=== PATIENT | female | born 1970 | race Caucasian/White ===

== ENCOUNTER 2019-10-11 10:23 | Outpatient (CLI) | payer MEDICAID ==
[~2019-10-11 10:23] MED LIST: BENZ-16 PO; GUAI10SY2 PO; IBUP-1984 PO; NO HOME MEDS; ONDA4TAB12 PO; ONDA4TAB59 PO; PHEN-716 PO
== END 2019-10-11 23:59 | disposition home or self-care (01) ==
LOC: MERGE 10:23 → RAD 10:23
PROVIDERS: ATTEND Psychiatry & Neurology Neurology
DX: R41.89 Other symptoms and signs involving cognitive functions and awareness (principal)
CPT/HCPCS: 95816

== ENCOUNTER 2021-09-06 12:51 | Emergency (ER) | payer MEDICAID ==
[~2021-09-06] VITALS: Ht 180.3 cm; Wt 109.1 kg
--- NOTE | 2021-09-06 13:24 | NUR ---
Pilo yan in [facility] - 09/06/21 at 1325 by GRAZYNA PAGED US NOW THAT PT IS READY WITH A FULL BLADDER
--- NOTE | 2021-09-06 13:26 | NUR ---
PT TO XRAY
--- NOTE | 2021-09-06 13:34 | NUR ---
PT BACK FROM XRAY
[2021-09-06] MEDS ORDERED: ibuprofen tablet 400 MG TABLET PO ONE (13:45)
[2021-09-06 13:58] VITALS: BP 122/85
== END 2021-09-06 14:00 | disposition home or self-care (01) ==
LOC: ER 12:51
DX: S80.212A Abrasion, left knee, initial encounter (principal); G43.909 Migraine, unspecified, not intractable, without status migrainosus; F31.9 Bipolar disorder, unspecified; Z88.0 Allergy status to penicillin; Z79.899 Other long term (current) drug therapy; X58.XXXA Exposure to other specified factors, initial encounter; Y93.89 Activity, other specified; Y92.89 Other specified places as the place of occurrence of the external cause; Y99.8 Other external cause status
CPT/HCPCS: 73564; 73630; 99284

== ENCOUNTER 2021-09-18 14:52 | Emergency (ER) | payer MEDICAID ==
[~2021-09-18] VITALS: Ht 180.3 cm; Wt 110.2 kg
[2021-09-18 15:31] VITALS: BP 163/90
[2021-09-18] MEDS ORDERED: SULF1TAB49 PO (17:34)
[2021-09-18] MEDS ORDERED: bacitracin 15gm ointment TP ONE (17:35)
[2021-09-19] MEDS ORDERED: SULF1TAB49 PO (16:23)
== END 2021-09-18 18:21 | disposition home or self-care (01) ==
LOC: ER 14:53
DX: L03.116 Cellulitis of left lower limb (principal); L03.115 Cellulitis of right lower limb; R10.32 Left lower quadrant pain; G43.909 Migraine, unspecified, not intractable, without status migrainosus; Z86.19 Personal history of other infectious and parasitic diseases; Z87.440 Personal history of urinary (tract) infections; Z98.891 History of uterine scar from previous surgery; Z88.5 Allergy status to narcotic agent; Z79.899 Other long term (current) drug therapy; Z72.89 Other problems related to lifestyle
CPT/HCPCS: 99283

== ENCOUNTER 2021-09-19 15:29 | Emergency (ER) | payer MEDICAID ==
[~2021-09-19] VITALS: Ht 180.3 cm; Wt 111.0 kg
[~2021-09-19 15:29] MED LIST changes: +SULF1TAB49 PO
[2021-09-19 15:40] VITALS: BP 138/73
[2021-09-19] MEDS ORDERED: SULF1TAB49 PO (16:23)
== END 2021-09-19 16:40 | disposition home or self-care (01) ==
LOC: ER 15:30
DX: L03.119 Cellulitis of unspecified part of limb (principal); Z76.0 Encounter for issue of repeat prescription; G43.909 Migraine, unspecified, not intractable, without status migrainosus; F31.9 Bipolar disorder, unspecified; Z87.448 Personal history of other diseases of urinary system; Z88.5 Allergy status to narcotic agent; Z79.899 Other long term (current) drug therapy
CPT/HCPCS: 99281; 99283

== ENCOUNTER 2021-11-11 12:27 | Emergency (ER) | payer MEDICAID ==
[~2021-11-11] VITALS: Ht 180.3 cm; Wt 90.9 kg
[~2021-11-11 12:27] MED LIST changes: -SULF1TAB49 PO
[2021-11-11 13:55] VITALS: BP 177/139
[2021-11-11] MEDS ORDERED: ibuprofen 200mg tablet PO ONE (16:00)
== END 2021-11-11 16:49 | disposition home or self-care (01) ==
LOC: ER 12:27
DX: M54.41 Lumbago with sciatica, right side (principal); G43.909 Migraine, unspecified, not intractable, without status migrainosus; F41.9 Anxiety disorder, unspecified; F32.9 Major depressive disorder, single episode, unspecified; Z86.19 Personal history of other infectious and parasitic diseases; Z88.5 Allergy status to narcotic agent; Z79.899 Other long term (current) drug therapy
CPT/HCPCS: 99282

== ENCOUNTER 2021-12-06 19:49 | Emergency (ER) | payer MEDICAID ==
[~2021-12-06] VITALS: Ht 180.3 cm; Wt 105.0 kg
[2021-12-07] MEDS ORDERED: ketorolac trometh. 30mg/ml inj. IM ONE (00:35)
[2021-12-07 02:29] LABS: BASOPHILS # (AUTO) 0.1 X10'3 (0-0.2); BASOPHILS % (AUTO) 1.2 % (0-1); EOSINOPHILS # (AUTO) 0.4 X10'3 (0-0.9); EOSINOPHILS % (AUTO) 6.4 % (0-6); HEMATOCRIT 40.5 % (35.0-45.0); HEMOGLOBIN 13.5 g/dl (12.0-16.0); LYMPHOCYTES # (AUTO) 2.3 X10'3 (1.1-4.8); LYMPHOCYTES % (AUTO) 36.5 % (21-51); MEAN CORPUSCULAR HEMOGLOBIN 28.3 PG (27.0-31.0); MEAN CORPUSCULAR HGB CONC 33.3 g/dL (33.0-36.5); MEAN CORPUSCULAR VOLUME 84.9 FL (78-98); MEAN PLATELET VOLUME 7.1 FL (7.4-10.4); MONOCYTES # (AUTO) 0.7 X10'3 (0-0.9); MONOCYTES % (AUTO) 10.6 % (2-12); NEUTROPHILS # (AUTO) 2.9 X10'3 (1.8-7.7); NEUTROPHILS % (AUTO) 45.3 % (42-75); PLATELET COUNT 267 X10'3 (140-440); RED BLOOD COUNT 4.77 X10'6 (4.20-5.60); RED CELL DISTRIBUTION WIDTH 14.2 % (11.5-14.5); WHITE BLOOD COUNT 6.3 X10'3 (4.5-11.0)
[2021-12-07 02:39] LABS: ALANINE AMINOTRANSFERASE 78 U/L (12-78); ALBUMIN 3.3 G/DL (3.4-5.0); ALBUMIN/GLOBULIN RATIO 0.8 (1.1-1.5); ALKALINE PHOSPHATASE 118 IU/L (46-116); ANION GAP 7 (8-16); ASPARTATE AMINO TRANSFERASE 36 U/L (10-37); BILIRUBIN,TOTAL 0.3 MG/DL (0.1-1.0); BLOOD UREA NITROGEN 21 MG/DL (7-18); BUN/CREATININE RATIO 20.4 (6.6-38.0); C-REACTIVE PROTEIN 0.28 MG/DL (0.0-0.5); CALCIUM 8.5 MG/DL (8.5-10.1); CHLORIDE 104 MMOL/L (99-107); CREATININE 1.03 MG/DL (0.40-0.90); ETHANOL < 0.010 GM/DL (0.0-0.010); GLUCOSE 94 MG/DL (70-104); SODIUM 141 MMOL/L (135-145); TOTAL CARBON DIOXIDE 29.6 MMOL/L (24-32); TOTAL PROTEIN 7.3 G/DL (6.4-8.2); eGFR 56 ML/MIN
[2021-12-07] MEDS ORDERED: normal saline 1000ml 1,000 ML IV ONE (03:15)
[2021-12-07] MEDS ORDERED: POTASSIUM BICARB 20meq eff tab 20 MEQ TABLET.EFF PO SCH (03:15)
[2021-12-07 06:00] LABS: COLOR,URINE YELLOW (Yellow); GLUCOSE, URINE NEGATIVE (Neg); KETONES,URINE NEGATIVE (Neg); LEUKOCYTE ESTERASE ,URINE SMALL (Neg); NITRITES, URINE NEGATIVE (Neg); OCCULT BLOOD,URINE NEGATIVE (Neg); PH,URINE 6.5 (4.8-8.0); PROTEIN,URINE NEGATIVE (Neg); UROBILINOGEN,URINE 0.2 E.U/dL (0.2-1.0)
[2021-12-07 06:06] LABS: UA COLLECTION TYPE CLN CATCH MIDSTREAM
[2021-12-07 06:07] LABS: CLARITY,URINE SLIGHTLY CLOUDY (Clear); URINE AMPHETAMINE SCREEN POSITIVE (Neg); URINE BARBITUATE SCREEN NEGATIVE (Neg); URINE BENZODIAZEPINES SCREEN NEGATIVE (Neg); URINE CANNABINOID SCREEN NEGATIVE (Neg); URINE COCAINE SCREEN NEGATIVE (Neg); URINE METHADONE SCREEN NEGATIVE (Neg); URINE OPIATE SCREEN NEGATIVE (Neg); URINE PHENCYCLIDINE SCREEN NEGATIVE (Neg)
[2021-12-07 06:08] LABS: BACTERIA,URINE FEW /HPF (Neg); RBC,URINE 0-2 /HPF (0-2); SQUAMOUS EPITHELIAL CELL,UR FEW /LPF (FEW)
[2021-12-07] MEDS ORDERED: LORazepam 2 mg/ml vial IV ONE (10:15)
--- NOTE | 2021-12-07 10:45 | NUR ---
PT WAS NOT ABLE TO GET MRI TEST ,VERY CONFUSED,NOTIFIED DR RDZ .
--- NOTE | 2021-12-07 11:32 | NUR ---
PT TO MRI AT THIS TIME.
--- NOTE | 2021-12-07 12:40 | NUR ---
TO MRI AGAIN.
--- NOTE | 2021-12-07 16:36 | NUR ---
PT IS VERY EMOTIONAL AND CRYING DOES NOT WANT TO GET TRANSFER OUT OF [facility] TO GET HIGHER LEVEL OF CARE .NOTIFIED DR ESPINO ABOUT PT CONDITION.
--- NOTE | 2021-12-07 16:38 | NUR ---
DR ESPINO AT BEDSIDE.
--- NOTE | 2021-12-07 17:48 | NUR ---
FIANCE AT BEDSIDE .
[2021-12-07 21:17] VITALS: BP 161/99
== END 2021-12-07 21:40 | disposition short-term general hospital (02) ==
LOC: ER 19:50
DX: G95.20 Unspecified cord compression (principal); G43.909 Migraine, unspecified, not intractable, without status migrainosus; Z88.5 Allergy status to narcotic agent
CPT/HCPCS: 36415; 70450; 70551; 72131; 72158; 80053; 80305; 80320; 81001; 83605; 84145; 85025; 85651; 86140; 87040; 96361; 96372; 96374; 99285; J1885; J2060; J7030

== ENCOUNTER 2021-12-27 14:09 | Emergency (ER) | payer MEDICAID ==
[~2021-12-27] VITALS: Ht 180.3 cm; Wt 79.5 kg
[2021-12-27 14:14] VITALS: BP 166/95
== END 2021-12-27 17:52 | disposition left against medical advice (07) ==
LOC: ER 14:10
DX: M54.9 Dorsalgia, unspecified (principal); Z53.21 Procedure and treatment not carried out due to patient leaving prior to being seen by health care provider
CPT/HCPCS: 93005

== ENCOUNTER 2022-01-18 11:34 | Emergency (ER) | payer MEDICAID ==
[~2022-01-18] VITALS: Ht 180.3 cm; Wt 98.0 kg
[2022-01-18 11:52] VITALS: BP 125/94
[2022-01-18] MEDS ORDERED: ketorolac trometh. 30mg/ml inj. IM ONE (12:40)
[2022-01-18] MEDS ORDERED: oxyCODONE IR 5mg (immed. release) tablet PO ONE (12:40)
[2022-01-18] MEDS ORDERED: LORazepam 1 MG tablet PO ONE (12:50)
== END 2022-01-18 13:03 | disposition home or self-care (01) ==
LOC: ER 11:34
DX: M54.50 Low back pain, unspecified (principal); G89.29 Other chronic pain; G43.909 Migraine, unspecified, not intractable, without status migrainosus; Z88.5 Allergy status to narcotic agent
CPT/HCPCS: 96372; 99283; J1885

== ENCOUNTER 2022-08-14 19:46 | Emergency (ER) | payer MEDICAID ==
[~2022-08-14] VITALS: Ht 180.3 cm; Wt 75.0 kg
[2022-08-14 20:08] VITALS: BP 124/68
--- NOTE | 2022-08-14 20:51 | NUR ---
pt refuses to be seen.
== END 2022-08-14 21:00 | disposition left against medical advice (07) ==
LOC: ER 19:47
DX: F10.129 Alcohol abuse with intoxication, unspecified (principal); Z53.21 Procedure and treatment not carried out due to patient leaving prior to being seen by health care provider; Y90.9 Presence of alcohol in blood, level not specified
CPT/HCPCS: 99281

== ENCOUNTER 2023-01-28 10:16 | Emergency (ER) | payer MEDICAID ==
[~2023-01-28] VITALS: Ht 180.3 cm; Wt 75.0 kg
[2023-01-28 10:24] VITALS: BP 118/75; PULSE 79; RESP 18; O2SAT 100
[2023-01-28] MEDS ORDERED: SULF1TAB49 PO (11:42)
[2023-01-28] MEDS ORDERED: CEPH-585 PO (11:42)
[2023-01-28] MEDS ORDERED: MUPI22OI30 TOP (11:42)
== END 2023-01-28 12:20 | disposition home or self-care (01) ==
LOC: ER 10:17
DX: L73.9 Follicular disorder, unspecified (principal); G43.909 Migraine, unspecified, not intractable, without status migrainosus; G89.29 Other chronic pain; Z87.440 Personal history of urinary (tract) infections; Z86.19 Personal history of other infectious and parasitic diseases; Z88.5 Allergy status to narcotic agent; Z79.899 Other long term (current) drug therapy
CPT/HCPCS: 99283

== ENCOUNTER 2023-02-09 20:58 | Emergency (ER) | payer MEDICAID ==
[~2023-02-09] VITALS: Ht 180.3 cm; Wt 90.8 kg
[~2023-02-09 20:58] MED LIST changes: +CEPH-585 PO
[2023-02-09 21:14] VITALS: BP 158/93; PULSE 100; RESP 14; TEMP 98.9; O2SAT 97
[2023-02-10] MEDS ORDERED: DOXY100C43 PO (00:04)
== END 2023-02-10 00:22 | disposition home or self-care (01) ==
LOC: ER 20:59
DX: L73.9 Follicular disorder, unspecified (principal); G43.909 Migraine, unspecified, not intractable, without status migrainosus; Z88.5 Allergy status to narcotic agent; Z79.2 Long term (current) use of antibiotics; Z79.1 Long term (current) use of non-steroidal anti-inflammatories (NSAID); Z79.899 Other long term (current) drug therapy; Z98.890 Other specified postprocedural states
CPT/HCPCS: 99283

== ENCOUNTER 2023-12-10 14:38 | Emergency (ER) | payer MEDICAID ==
[~2023-12-10] VITALS: Ht 177.8 cm; Wt 106.1 kg
[~2023-12-10 14:38] MED LIST changes: +ONDA-243 PO; -ONDA4TAB12 PO
[2023-12-10] MEDS: ibuprofen 200mg tablet PO ONE (16:17)
[2023-12-10] MEDS: LIDOcaine 1% 30ml preserv. free vial SQ STA (17:19)
[2023-12-10] MEDS ORDERED: DOXYCYCLINE 100MG CAPSULE PO STA (17:22)
[2023-12-10] MEDS ORDERED: ciprofloxacin 250mg tablet PO ONE (17:25)
[2023-12-10] MEDS ORDERED: CIPR-20 PO (17:32)
[2023-12-10] MEDS ORDERED: DOXY-460 PO (17:32)
[2023-12-10] MEDS ORDERED: IBUP-1985 PO (17:32)
[2023-12-10 17:41] VITALS: BP 120/72; PULSE 92; RESP 18; TEMP 98.2; O2SAT 93
== END 2023-12-10 17:43 | disposition home or self-care (01) ==
LOC: ER 14:38
DX: L02.612 Cutaneous abscess of left foot (principal); M79.89 Other specified soft tissue disorders; G43.909 Migraine, unspecified, not intractable, without status migrainosus; G89.29 Other chronic pain; M54.9 Dorsalgia, unspecified; F41.9 Anxiety disorder, unspecified; F32.A Depression, unspecified; Z98.890 Other specified postprocedural states; Z88.8 Allergy status to other drugs, medicaments and biological substances; Z79.2 Long term (current) use of antibiotics; Z79.1 Long term (current) use of non-steroidal anti-inflammatories (NSAID); Z79.899 Other long term (current) drug therapy
CPT/HCPCS: 10060; 73630; 99283

== ENCOUNTER 2024-11-15 09:14 | Inpatient (IN) | payer MEDICAID ==
[~2024-11-15] VITALS: Ht 180.3 cm; Wt 98.2 kg
[~2024-11-15 09:14] MED LIST changes: -CEPH-585 PO; +IBUP-1985 PO
--- NOTE | 2024-11-15 10:08 | Physician Documentation ---
History of Present Illness ~ Chief Complaint: Abscess Stated Complaint: ANKLE INFECTION Time Seen by MD: 09:48 Primary Medical Doctor: NANCY Olivarez [facility] HPI 53-year-old female presents today will with three days of left lower extremity pain and swelling. denies Any fevers, however she thinks she may have developed an abscess on the left side of her leg while moving homes. Reports the pain starts in her lower extremity and travels all the way up to her left inguinal area Day of Onset: Nov 15, 2024 Tetanus Within 5 Years: No Medication Reconciliation Allergies: Coded Allergies: morphine (Verified Allergy, Mild, RASH, 01/28/23) Scheduled Amlodipine* (Norvasc*), 10 MG PO DAILY, (Reported) Bupropion XL (Bupropion Xl), 1 TAB PO QAM, (Reported) Hydrochlorothiazide (Hydrochlorothiazide), 1 TAB PO DAILY, (Reported) Valsartan* (Diovan*), 1 TAB PO DAILY, (Reported) Discontinued Medications Benzonatate* (Tessalon Perles*), 1 CAP PO Q8H PRN for cough Discontinued Reason: patient no longer taking Guaifenesin/Codeine Phos* (Robitussin Ac Syrup*), 10 ML PO Q6H PRN FOR COUGH Discontinued Reason: patient no longer taking Home Med List (No Home Medications), (Reported) Discontinued Reason: patient no longer taking Ibuprofen (Ibuprofen), 1 TAB PO Q8H Discontinued Reason: patient no longer taking Ibuprofen* (Motrin*), 1-2 TAB PO Q8H Discontinued Reason: patient no longer taking ONDANSETRON ODT 4mg tablet (Ondansetron Odt), 1 TABLET PO Q6H PRN for pain Discontinued Reason: patient no longer taking Ondansetron Hcl (Ondansetron Hcl), 4 MG PO Q6H PRN for NAUSEA Discontinued Reason: patient no longer taking Phenazopyridine HCl (Pyridium), 1 TAB PO Q8H Discontinued Reason: patient no longer taking Past Medical History Past Medical History: Headache, Migraine, Hepatitis C, Hernia, UTI, Chronic Back Pain, Anxiety, Depression Past Surgical History: abdominal surgery, Other Past Family History: NONE Alcohol Use: None Drug Use: other Lives with: Family Lives In: Home Occupation: employed, student Review of Systems All Other Systems at this time: Reviewed and Negative ROS As stated above in the HPI, otherwise all systems are reviewed and negative. Physical Exam Vital Signs: Temperature: 97.6, Source: Temporal, Heart Rate: 91, Respiratory Rate: 12, BP: 120/86, Pulse Oximetry: 97, Weight: 98.200 Physical Exam General: Alert, no apparent distress. Respiratory: Lungs clear, no respiratory distress. Extremities: Normal range of motion, no deformity. + Homans sign LLE, circumferential swelling on lower extremity with developing infection in the lateral aspect and purplish discoloration in the medial aspect. Lymphangitis Neurologic: Oriented x4. Psychiatric: Normal mood and affect. Skin: Normal color, warm and dry. No edema, no ecchymosis. Progress Results/Orders Results/Orders Orders - MOIZ MASSEY ACCIDENT INVESTIGATOR Culture Blood (11/15/24 10:00) Urinalysis, Cult If Indicated (11/15/24 10:00) Monitor (11/15/24 10:00) Saline Lock (11/15/24 10:00) Vl Venous (11/15/24 10:00) Page Hospitalist (11/15/24 ) Non Formulary (11/17/24 04:30) Vancomycin,Trough (11/17/24 04:30) CMP (11/16/24 03:00) CMP (11/17/24 03:00) CMP (11/18/24 03:00) CMP (11/19/24 03:00) CMP (11/20/24 03:00) Cbc/Diff (11/16/24 03:00) Cbc/Diff (11/17/24 03:00) Cbc/Diff (11/18/24 03:00) Cbc/Diff (11/19/24 03:00) Cbc/Diff (11/20/24 03:00) Completed Orders - MOIZ MASSEY ACCIDENT INVESTIGATOR Cbc/Diff (11/15/24 10:00) Procalcitonin (11/15/24 10:00) BMP (11/15/24 10:00) Lacticsepsis (11/15/24 10:00) Vl Venous (11/15/24 10:00) Piperacillin/Tazo 4.5gm/100ml (Zosyn 4.5 (11/15/24 11:45) Vancomycin*Pharmacy To Dose* (Vancomycin (11/15/24 11:45) Normal Saline 1000ml (Sodium Chloride 10 (11/15/24 11:50) Vancomycin/Ns 1 Gm Add-Tom Bean (Vancomyc (11/15/24 13:00) Osmolality (11/15/24 10:53) Medications Received in ER Medications (Trade) Dose Ordered Sig/Sierra Route PRN Reason Start Time Stop Time Status Last Admin Dose Admin Piperacillin/ Tazobactam/ Dextrose 100 ml @ 25 mls/hr NOW ONCE IV 11/15/24 11:45 11/15/24 15:44 DC 11/15/24 12:27 25 MLS/HR (sodium chloride 1000ml IV soln) 2,000 ml ONCE ONCE IVB 11/15/24 11:50 11/15/24 11:51 DC 11/15/24 12:20 2,000 ML ([place] 10/325mg tab) 1 tab Q4H PRN PO SEVERE PAIN 7-10 11/15/24 12:10 11/15/24 14:41 1 TAB Sodium Chloride 1,000 ml @ 100 mls/hr Q10H IV 11/15/24 12:10 11/15/24 13:00 100 MLS/HR Vital Signs 11/15/24 09:19 Temp 97.6 Pulse 91 Resp 12 B/P (MAP) 120/86 Pulse Ox 97 Laboratory Tests Test 11/15/24 10:53 White Blood Count 19.3 H Red Blood Count 5.29 Hemoglobin 14.2 Hematocrit 43.6 Mean Corpuscular Volume 82.4 Mean Corpuscular Hemoglobin 26.9 L Mean Corpuscular Hemoglobin Concent 32.7 L Red Cell Distribution Width 14.8 H Platelet Count 257 Mean Platelet Volume 7.0 L Neutrophils (%) (Auto) 85.7 H Lymphocytes (%) (Auto) 7.8 L Monocytes (%) (Auto) 6.2 Eosinophils (%) (Auto) 0 Basophils (%) (Auto) 0.3 Neutrophils # (Auto) 16.5 H Lymphocytes # (Auto) 1.5 Monocytes # (Auto) 1.2 H Eosinophils # (Auto) 0.0 Basophils # (Auto) 0.1 CBC Comment Sodium Level 131 L Potassium Level 3.8 Chloride Level 97 L Carbon Dioxide Level 26.1 Anion Gap 8 Blood Urea Nitrogen 14 Creatinine 1.46 H Estimated GFR/1.73 m2 37 BUN/Creatinine Ratio 9.6 L Glucose Level 103 Osmolality 289 Lactic Acid Level 1.3 Calcium Level 9.2 Albumin 3.3 L Procalcitonin 0.75 H Chemistry Comments Microbiology Date/Time Source Procedure Growth Status 11/15/24 10:53 Blood Iv Start Blood Culture - Preliminary NEGATIVE (LESS THAN 24 HOURS) Resulted Medical Decision Making Findings White count came back with 19 lactic still below the sepsis paremeters. . I am recommending hospital admission. this pt would Benefit from IV antibiotics fluid resuscitation and further imaging I was initially concerned for possible DVT based on the overall tenderness of the left lower extremity. Vascular lower ultrasound indicated there was no signs of blood clots however he did make note of lymphadenopathy up into the left groin Differential Dx:Considerations: Include: Abscess, Bacteremia, Cellulitis, Erysipelas, Felon, Gas gangrene, Hidrademitis suppurativa, Impetigo, Lymphangitis, Osteromyelitis, Paronychia, Septicemia, Other Departure Disposition: ADMITTED INPATIENT Impression: Primary Impression: Cellulitis Additional Impression: Abscess Referrals: NO PRIMARY CARE PROVIDER (PCP) Signature Scribe Signature: v Attestation: Scribed for Moiz Massey Learning Development Specialist by Moiz Olivarez NP . 11/15/24 18:04 MOIZ MASSEY ACCIDENT INVESTIGATOR Nov 15, 2024 10:08
[2024-11-15 11:05] LABS: BASOPHILS # (AUTO) 0.1 X10'3 (0-0.2); BASOPHILS % (AUTO) 0.3 % (0-1); EOSINOPHILS % (AUTO) 0 % (0-6); HEMATOCRIT 43.6 % (35.0-45.0); HEMOGLOBIN 14.2 g/dl (12.0-16.0); LYMPHOCYTES # (AUTO) 1.5 X10'3 (1.1-4.8); LYMPHOCYTES % (AUTO) 7.8 % (21-51); MEAN CORPUSCULAR HEMOGLOBIN 26.9 PG (27.0-31.0); MEAN CORPUSCULAR HGB CONC 32.7 g/dL (33.0-36.5); MEAN CORPUSCULAR VOLUME 82.4 FL (78-98); MONOCYTES # (AUTO) 1.2 X10'3 (0-0.9); MONOCYTES % (AUTO) 6.2 % (2-12); NEUTROPHILS # (AUTO) 16.5 X10'3 (1.8-7.7); NEUTROPHILS % (AUTO) 85.7 % (42-75); PLATELET COUNT 257 X10'3 (140-440); RED BLOOD COUNT 5.29 X10'6 (4.20-5.60); RED CELL DISTRIBUTION WIDTH 14.8 % (11.5-14.5); WHITE BLOOD COUNT 19.3 X10'3 (4.5-11.0)
[2024-11-15 11:22] LABS: ALBUMIN 3.3 G/DL (3.4-5.0); ANION GAP 8 (8-16); BLOOD UREA NITROGEN 14 MG/DL (7-18); BUN/CREATININE RATIO 9.6 (10.0-20.0); CALCIUM 9.2 MG/DL (8.5-10.1); CHLORIDE 97 MMOL/L (99-107); CREATININE 1.46 MG/DL (0.40-0.90); GLUCOSE 103 MG/DL (70-104); POTASSIUM 3.8 MMOL/L (3.5-5.1); SODIUM 131 MMOL/L (135-145); TOTAL CARBON DIOXIDE 26.1 MMOL/L (24-32); eCRCL 48 ML/MIN; eGFR 37 ML/MIN
--- NOTE | 2024-11-15 12:01 | VASCULAR REPORT ---
Left lower extremity venous duplex Clinical History: Pain, swelling Comparison: None Technique: Duplex Doppler evaluation of the deep venous system of the left lower extremity from the common femor al vein to the popliteal vein including color Doppler and spectral/pulsed waveform analysis was perfo rmed. Findings: The common femoral vein demonstrates appropriate compressibility and waveform variability. There is compressibility/patency of the great saphenous vein at the proximal thigh. The femoral vein demonstrates appropriate compressibility and waveform variability. The deep femoral vein demonstrates appropriate compressibility and waveform variability. The popliteal vein demonstrates appropriate compressibility and waveform variability. There is normal compressibility at the tibioperoneal trunk. Impression: No left femoropopliteal venous thrombosis. Contralateral common femoral vein is patent.
[2024-11-15] MEDS ORDERED: acetaminophen 325mg tablet PO PRN ×2 (12:10)
[2024-11-15] MEDS ORDERED: morphine 2 MG/ML inj. syringe IV PRN (12:10)
[2024-11-15] MEDS ORDERED: potassium Cl 40MEQ/1/2NS 520ml 520 ML IV PRN (12:10)
[2024-11-15] MEDS ORDERED: magnesium sulf-water 4G/100mL 100 ML IV PRN (12:10)
[2024-11-15] MEDS ORDERED: ondansetron 4mg rapidly disintigrating tab PO PRN (12:10)
[2024-11-15] MEDS ORDERED: ondansetron/PF 4mg/2ml inj IV PRN (12:10)
[2024-11-15] MEDS ORDERED: HYDROcodone/acetaminophen 5mg/325mg tablet PO PRN (12:10)
[2024-11-15] MEDS ORDERED: magnesium hydroxide 30ml (MOM) UD suspension PO PRN (12:10)
[2024-11-15] MEDS ORDERED: magnesium sulf-water 2g/50mL 50 ML IV PRN (12:10)
[2024-11-15] MEDS ORDERED: potassium Cl 20 mEq SR tablet PO PRN ×2 (12:10)
[2024-11-15] MEDS ORDERED: mag hydrox/Alum hydrox/simeth 30ml oral suspension PO PRN (12:10)
[2024-11-15] MEDS: normal saline 1000ML IV soln IVB ONE (12:20)
[2024-11-15] MEDS: piperacillin/tazo 4.5gm/100ml 100 ML IV ONE (12:27)
[2024-11-15 12:56] LABS: OSMOLALITY 289 MOSM/K (280-300)
[2024-11-15] MEDS: normal saline 1000ml 1,000 ML IV SCH (13:00)
[2024-11-15] MEDS ORDERED: vancomycin/NS 1 GM ADD-VANTAGE 250 ML IV SCH (13:00)
[2024-11-15] MEDS: HYDROcodone/acetaminophen 10/325mg tab PO PRN (14:41)
[2024-11-15] MEDS ORDERED: HYDR25TA4 PO (15:22)
[2024-11-15] MEDS ORDERED: AMLO2.5T2 PO (15:22)
[2024-11-15] MEDS ORDERED: BUPR-344 PO (15:22)
[2024-11-15] MEDS ORDERED: VALS80TA2 PO (15:22)
--- NOTE | 2024-11-15 16:26 | RADIOLOGY REPORT ---
INDICATION: cellulitis COMPARISON: None TECHNIQUE: CT of the left lower extremity was performed without contrast. Volume transverse images w ere obtained and reconstructed in multiple planes using bone and soft tissue algorithms. Radiation Dose Information: CT Dose: CTDI volume is 7 mGy. Dose-length product is 530 mGy*cm FINDINGS: The alignment is normal. The joint spaces are normal. There is no fracture, dislocation or aggressive osseous lesion. There is no joint effusion. Mild soft tissue swelling anteriorly consistent with cellulitis. No soft tissue abscess. No lytic or blastic lesions IMPRESSION: 1. Findings suggestive of cellulitis No osteomyelitis No soft tissue abscess No fracture All CT scans at this medical facility are performed using dose modulation techniques as appropriate t o a performed exam including the following: Automated exposure control was utilized; adjustment of th e MA and/or KV according to patient size; and use of iterative reconstruction technique.
[2024-11-15] MEDS: heparin, porcine 5000 units/ml vial SQ SCH (16:29)
--- NOTE | 2024-11-15 16:49 | HISTORY AND PHYSICAL ---
History & Physical Providers to ~ History of Present Illness Reason for Admit\Complaint: Cellulitis, sepsis History of Present Illness Breonna Ceballos is a 53-year-old female with a past medical history of methamphetamine abuse who presented to the ED with chief complaints of acute onset left lower extremity pain and redness x 3 days. Patient reports itching of left lower extremity which led her to vigorously scratch her left leg and subsequently open sores on lateral left lower leg which had scabbed now. Patient denies prior [place]/CAD, CVA, cardiac arrhythmia, DVT/PE, or GIB. Patient denies chest pain, palpitations, shortness of breath, abdominal pain, n/v/d, fever, chills, dysuria. Patient is to be admitted for further workups and treatment. Allergies: Coded Allergies: morphine (Verified Allergy, Mild, RASH, 01/28/23) Home Medications Home Medications Active Reported Bupropion Xl (Bupropion HCl) 300 Mg Tab.er.24h 1 Tab PO QAM Hydrochlorothiazide 25 Mg Tablet 1 Tab PO DAILY Diovan* (Valsartan) 80 Mg Tablet 1 Tab PO DAILY Norvasc* (Amlodipine Besylate) 2.5 Mg Tablet 10 Mg PO DAILY Past Medical History Past Medical History Methamphetamine abuse Hypertension MRSA cellulitis, lower back Past Surgical History Surgical History Comment Laminectomy Past Social History Social History Comment Alcohol: Denies Tobacco: Denies Illicit drug use: Methamphetamine abuse, last use 1.5 months ago Living situation: Lives at home with spouse ROS ROS Other than positives in HPI, all 14 review of systems are negative Exam Vitals: Vital Signs Date Time Temp Pulse Resp B/P (MAP) Pulse Ox O2 Delivery O2 Flow Rate FiO2 11/15/24 15:03 102 16 132/91 (105) 96 0 11/15/24 09:19 97.6 General: Generalized weakness, A&Ox 3, NAD HEENT: Normocephalic, PERRLA Neck: Supple, trachea midline, no JVD Chest: Clear to auscultation bilaterally Cardiovascular: RRR, S1&S2 Abdomen: Soft and nontender Extremities: Tender left lower extremity, erythematous around lateral medial and anterior aspects of left lower leg, +1 edema left lower extremity Central Nervous System: CN II-XII intact, no focal deficits Musculoskeletal: No paraspinal muscle tenderness, no muscle spasm Skin: Scabs in left lateral lower extremity Diagnostic Data Last Recorded Lab Results: 11/15/24 1053 11/15/24 1053 Additional Plan Assessment Cellulitis, LLE Sepsis 2/2 cellulitis Prerenal YENNI 2/2 sepsis/vasomotor nephropathy Hyponatremia, mild Methamphetamine abuse -CT shows cellulitis, no osteomyelitis/abscess/fracture, wbc 19, procal 0.75, lactic acid 1.3 -venous US LLE negative Plan -start vancomycin, Zosyn, bolus and continuous IVF -follow blood culture, UA, urine lytes, osmolality studies, UDS, strict I&Os -wound care consult DVT/VTE prophylaxis: heparin Code status: Full code I spent a total of 35 minutes discussing Advanced Care Planning measures with the patient. Advance care planning: Discussed with patient the importance of advance care planning in case of emergent situation. We discussed various resuscitative measures/ ACP with the patient at the time of admission. Patient voiced understanding and patient has decided on a full code status Date of Service: Nov 15, 2024 Billing Provider: SILVIA SCHAFFER Common Visit Codes: [id number] INP/OBS CARE (HIGH) Secondary Visit Codes: 14098-[id number] CARE PLAN 30 MINUTES SILVIA SCHAFFER Nov 15, 2024 16:49
[2024-11-15] MEDS: vancomycin/NS 1 GM ADD-VANTAGE 250 ML IV SCH (17:06)
[2024-11-15] MEDS: normal saline 1000ml 1,000 ML IV ONE ×3 (17:06→19:40)
[2024-11-15] MEDS: PERFLUTREN PROTEIN-A MICROSPHR (Optison) 0.22 MG/ML 3ML VIAL IV ONE (17:09)
[2024-11-15] MEDS: K and/or MAG REPLACEMENT MC SCH (20:00)
[2024-11-15] MEDS: docusate sod 100mg capsule PO SCH (20:00)
[2024-11-15] MEDS: piperacillin/tazo 3.375gm/50ml 50 ML IV SCH (20:23)
[2024-11-15 23:30] VITALS: BP 123/87; PULSE 86; RESP 15; TEMP 98.7; O2SAT 97
[2024-11-16 00:30] LABS: BILIRUBIN,URINE NEGATIVE (Neg); CLARITY,URINE CLEAR (Clear); COLOR,URINE YELLOW (Yellow); GLUCOSE, URINE NEGATIVE (Neg); KETONES,URINE NEGATIVE (Neg); LEUKOCYTE ESTERASE ,URINE NEGATIVE (Neg); NITRITES, URINE NEGATIVE (Neg); OCCULT BLOOD,URINE NEGATIVE (Neg); PROTEIN,URINE 30 mg/dl (Neg)
[2024-11-16 00:31] LABS: UA COLLECTION TYPE NON-SPECIFIED
[2024-11-16 00:36] LABS: BACTERIA,URINE FEW /HPF (Neg); RBC,URINE 0-2 /HPF (0-2); SQUAMOUS EPITHELIAL CELL,UR MODERATE /LPF (FEW); TOTAL PROTEIN,URINE RANDOM 81.8 MG/DL; TRANSITIONAL EPI CELLS,URINE FEW /HPF
[2024-11-16 00:37] LABS: MUCUS STRANDS MODERATE /LPF (Neg)
[2024-11-16 00:50] VITALS: RESP 15; O2SAT 97
[2024-11-16 00:54] LABS: URINE AMPHETAMINE SCREEN NEGATIVE (Neg); URINE BARBITUATE SCREEN NEGATIVE (Neg); URINE BENZODIAZEPINES SCREEN NEGATIVE (Neg); URINE CANNABINOID SCREEN NEGATIVE (Neg); URINE COCAINE SCREEN NEGATIVE (Neg); URINE METHADONE SCREEN NEGATIVE (Neg); URINE OPIATE SCREEN POSITIVE (Neg); URINE PHENCYCLIDINE SCREEN NEGATIVE (Neg)
[2024-11-16 06:00] VITALS: BP 118/84; PULSE 77; RESP 16; TEMP 97.7; O2SAT 94
[2024-11-16 06:12] LABS: ALANINE AMINOTRANSFERASE 20 U/L (12-78); ALBUMIN 2.4 G/DL (3.4-5.0); ALBUMIN/GLOBULIN RATIO 0.6 (1.1-1.5); ALKALINE PHOSPHATASE 78 IU/L (46-116); ANION GAP 9 (8-16); ASPARTATE AMINO TRANSFERASE 17 U/L (10-37); BILIRUBIN,TOTAL 0.3 MG/DL (0.1-1.0); BLOOD UREA NITROGEN 10 MG/DL (7-18); BUN/CREATININE RATIO 9.6 (10.0-20.0); CALCIUM 8.2 MG/DL (8.5-10.1); CHLORIDE 107 MMOL/L (99-107); CREATININE 1.04 MG/DL (0.40-0.90); GLUCOSE 98 MG/DL (70-104); POTASSIUM 3.7 MMOL/L (3.5-5.1); SODIUM 137 MMOL/L (135-145); TOTAL CARBON DIOXIDE 21.1 MMOL/L (24-32); TOTAL PROTEIN 6.3 G/DL (6.4-8.2); eCRCL 69 ML/MIN; eGFR 55 ML/MIN
[2024-11-16 08:51] LABS: BASOPHILS # (AUTO) 0.1 X10'3 (0-0.2); EOSINOPHILS # (AUTO) 0.1 X10'3 (0-0.9); EOSINOPHILS % (AUTO) 0.9 % (0-6); HEMATOCRIT 39.2 % (35.0-45.0); HEMOGLOBIN 12.8 g/dl (12.0-16.0); LYMPHOCYTES # (AUTO) 1.2 X10'3 (1.1-4.8); LYMPHOCYTES % (AUTO) 18.8 % (21-51); MEAN CORPUSCULAR HEMOGLOBIN 27.2 PG (27.0-31.0); MEAN CORPUSCULAR HGB CONC 32.8 g/dL (33.0-36.5); MEAN CORPUSCULAR VOLUME 83.1 FL (78-98); MEAN PLATELET VOLUME 7.8 FL (7.4-10.4); MONOCYTES # (AUTO) 0.5 X10'3 (0-0.9); MONOCYTES % (AUTO) 7.3 % (2-12); NEUTROPHILS # (AUTO) 4.7 X10'3 (1.8-7.7); PLATELET COUNT 192 X10'3 (140-440); RED BLOOD COUNT 4.71 X10'6 (4.20-5.60); RED CELL DISTRIBUTION WIDTH 14.7 % (11.5-14.5); WHITE BLOOD COUNT 6.6 X10'3 (4.5-11.0)
[2024-11-16 10:00] VITALS: BP 125/80; PULSE 80; RESP 16; TEMP 97.6; O2SAT 99
--- NOTE | 2024-11-16 11:47 | PROGRESS NOTE ---
Daily Progress Note Providers to CC ~ Antibiotic Timeout Antibiotic Ordered?: Yes If Yes, Indications: Cellulitis Subjective No acute events overnight. Patient examined at bedside. No new complaints not in acute distress. Patient denies chest pain, sob, palpitations, abdominal pain, n/v/d. Vss, labs notable for downtrending Cr on IVF and otherwise unremarkable. Continued on empirical antibiotics. Objective Vital Signs Date Time Temp Pulse Resp B/P (MAP) Pulse Ox O2 Delivery O2 Flow Rate FiO2 11/16/24 08:00 Room Air 0.0 11/16/24 00:50 15 97 11/15/24 23:30 98.7 86 123/87 (99) Result Diagram: 11/16/24 0815 11/16/24 0440 Physical Exam General: Generalized weakness, A&Ox 3, NAD HEENT: Normocephalic, PERRLA Neck: Supple, trachea midline, no JVD Chest: Clear to auscultation bilaterally Cardiovascular: RRR, S1&S2 Abdomen: Soft and nontender Extremities: Tender left lower extremity, erythematous around lateral medial and anterior aspects of left lower leg Central Nervous System: CN II-XII intact, no focal deficits Musculoskeletal: No paraspinal muscle tenderness, no muscle spasm Skin: Scabs in left lateral lower extremity Problem\Assessment\Plan Assessment Cellulitis, LLE Sepsis 2/2 cellulitis Prerenal YENNI 2/2 sepsis/vasomotor nephropathy Hyponatremia, mild Methamphetamine abuse -CT shows cellulitis, no osteomyelitis/abscess/fracture, wbc 19, procal 0.75, lactic acid 1.3 -venous US LLE negative -11/16: Cr downtrending on IVF, serum Na normalized Plan -start vancomycin, Zosyn, bolus and continuous IVF -follow blood culture, UA, urine lytes, osmolality studies, UDS, strict I&Os -wound care consult -11/16: continue abx, IVF DVT/VTE prophylaxis: heparin Code status: Full code Date of Service: Nov 16, 2024 Billing Provider: SILVIA SCHAFFER Common Visit Codes: [id number] INP/OBS CARE(HIGH) SILVIA SCHAFFER Nov 16, 2024 11:47
[2024-11-16] MEDS: morphine 2 MG/ML inj. syringe IV PRN (12:42)
[2024-11-16] MEDS: amLODIPine 5mg tablet PO ONE (14:14)
[2024-11-16 14:16] VITALS: BP 131/80; PULSE 84
--- NOTE | 2024-11-16 15:38 | CARDIOLOGY REPORT ---
APPROVED REPORT EXAM: Comprehensive 2D, Doppler, and color-flow Echocardiogram. Patient Location: [facility] Heart Rate: 80'S bpm Rhythm: SINUS Indications CONGESTIVE HEART FAILURE METH USE HYPERTENSION Political Aide: NONE Previous echo: NONE 2D Dimensions RVDd 3.2 cm LA Diam0.8 cm IVSd 0.8 (0.7-1.1cm) LVDd 4.3 cm PWd 0.9 (0.7-1.1cm) IVSs 1.2 (0.8-1.2cm) LVDs 2.6 (2.5-4.0cm) PWs 1.8 (0.8-1.2cm) LVOT Diameter 1.99 (1.8-2.4cm) LVEF(%) 71.5 (>50%) FS (%) 40.5 % SV 60.4 ml CO 5.1 L/min M-Mode Dimensions Left Atrium(MM) 4.65 (2.5-4.0cm) Aortic Valve AoV Peak Jefry. 177.7 cm/s AoV VTI 33.2 cm AO Peak GR. 12.6 mmHg AO Mean GR. 8 mmHg LVOT VTI 30.15 cm LVOT Peak Jefry. 150.7 cm/s CARRIE(VTI)/BSA 2.83 cm2/m2 CARRIE (VTI) 2.83 cm2 Mitral Valve MV E Velocity 102.3 cm/s MV Peak Gr. 5 mmHg MV DECEL TIME 180 ms MV A Velocity 107.8 cm/s MV PHT 68 ms E/A Ratio 0.9 MVA (PHT) 3.24 cm2 MV [id number] cm/s Tricuspid Valve TR P. Velocity 227 cm/s RAP ESTIMATE 5 mmHg TR Peak Gr. 21 mmHg RVSP 26 mmHg LEFT VENTRICLE Normal LV size and wall thickness. Overall systolic function is hyperdynamic. Increased LVOT velocity of 150 cm/s. Peak LVOT gradients of 6 mmHg at rest. Overall LVEF is 75%. TDS RIGHT VENTRICLE RV is mildy dilated in size with normal function. TDS ATRIA Left atrium is mildly dilated. Mobile interatrial septum - no flow detected.TDS AORTIC VALVE Trileaflet AV appears normal without stenosis. Trivial insufficiency. TDS MITRAL VALVE Mild MV annular calcification without stenosis. Trace regurgitation. TDS TRICUSPID VALVE TV appears structurally normal with trace regurgitation. TDS PULMONIC VALVE Normal PV without stenosis, physiologic insufficiency. TDS GREAT VESSELS Aortic root appears mildly dilated, although root poorly visualized. IVC appears normal in siz e and collapses greater than 50% with inspiration. PERICARDIUM Normal pericardium. No effusion. Other Information Study Quality: Fair. TDS parasternal window due to body habitus. Conclusion Overall LVEF is 75%. TDS Normal LV size and wall thickness. Overall systolic function is hyperdynamic. Increased LVOT velocity of 150 cm/s. Peak LVOT gradients of 6 mmHg at rest. RV is mildy dilated in size with normal function. TDS Left atrium is mildly dilated. Mobile interatrial septum - no flow detected.TDS Trileaflet AV appears normal without stenosis. Trivial insufficiency. TDS Mild MV annular calcification without stenosis. Trace regurgitation. TDS TV appears structurally normal with trace regurgitation. TDS Normal PV without stenosis, physiologic insufficiency. TDS Aortic root appears mildly dilated, although root poorly visualized. Normal pericardium. No effusion.
[2024-11-16 18:00] VITALS: BP 147/84; PULSE 80; RESP 18; TEMP 98; O2SAT 100
[2024-11-16] MEDS: BUPROPION HCL 150MG XL 24 HR 150 MG TAB PO ONE (19:20)
[2024-11-16 22:58] VITALS: BP 120/73; PULSE 93; RESP 16; TEMP 98.1; O2SAT 95
[2024-11-17] MEDS: VANCOMYCIN LEVEL IV ONE (04:30)
[2024-11-17 05:04] LABS: BASOPHILS % (AUTO) 0.8 % (0-1); EOSINOPHILS # (AUTO) 0.1 X10'3 (0-0.9); EOSINOPHILS % (AUTO) 2.5 % (0-6); HEMATOCRIT 37.8 % (35.0-45.0); HEMOGLOBIN 12.7 g/dl (12.0-16.0); LYMPHOCYTES # (AUTO) 1.7 X10'3 (1.1-4.8); LYMPHOCYTES % (AUTO) 32.1 % (21-51); MEAN CORPUSCULAR HEMOGLOBIN 27.7 PG (27.0-31.0); MEAN CORPUSCULAR HGB CONC 33.5 g/dL (33.0-36.5); MEAN CORPUSCULAR VOLUME 82.5 FL (78-98); MEAN PLATELET VOLUME 7.4 FL (7.4-10.4); MONOCYTES # (AUTO) 0.7 X10'3 (0-0.9); MONOCYTES % (AUTO) 13.6 % (2-12); NEUTROPHILS # (AUTO) 2.8 X10'3 (1.8-7.7); PLATELET COUNT 229 X10'3 (140-440); RED BLOOD COUNT 4.58 X10'6 (4.20-5.60); RED CELL DISTRIBUTION WIDTH 14.8 % (11.5-14.5); WHITE BLOOD COUNT 5.4 X10'3 (4.5-11.0)
[2024-11-17 05:46] LABS: ALANINE AMINOTRANSFERASE 20 U/L (12-78); ALBUMIN 2.5 G/DL (3.4-5.0); ALBUMIN/GLOBULIN RATIO 0.6 (1.1-1.5); ALKALINE PHOSPHATASE 80 IU/L (46-116); ANION GAP 11 (8-16); ASPARTATE AMINO TRANSFERASE 23 U/L (10-37); BILIRUBIN,TOTAL 0.2 MG/DL (0.1-1.0); BLOOD UREA NITROGEN 8 MG/DL (7-18); BUN/CREATININE RATIO 8.4 (10.0-20.0); CALCIUM 8.6 MG/DL (8.5-10.1); CHLORIDE 107 MMOL/L (99-107); CREATININE 0.95 MG/DL (0.40-0.90); GLUCOSE 98 MG/DL (70-104); POTASSIUM 3.6 MMOL/L (3.5-5.1); SODIUM 138 MMOL/L (135-145); TOTAL CARBON DIOXIDE 20.4 MMOL/L (24-32); TOTAL PROTEIN 6.7 G/DL (6.4-8.2); eCRCL 76 ML/MIN; eGFR 61 ML/MIN
[2024-11-17 05:48] LABS: VANCOMYCIN,TROUGH 6.8 ug/mL (10.0-20.0)
[2024-11-17 06:00] VITALS: BP 127/81; PULSE 73; RESP 18; TEMP 96.6; O2SAT 99
[2024-11-17] MEDS: amLODIPine 5mg tablet PO SCH (07:15)
[2024-11-17] MEDS: BUPROPION HCL 150MG XL 24 HR 150 MG TAB PO SCH (07:15)
[2024-11-17] MEDS: normal saline 500ml IV soln 500 ML IV ONE (07:16)
[2024-11-17] MEDS ORDERED: iohexol 300mg/ml 100ml inj. ONE (07:46)
[2024-11-17 10:00] VITALS: BP 154/115; PULSE 92; RESP 18; TEMP 98.4; O2SAT 100
--- NOTE | 2024-11-17 12:17 | RADIOLOGY REPORT ---
CLINICAL INFORMATION: Rule out abscess. TECHNIQUE: Axial CT images of the left were obtained without IV contrast. Coronal and sagittal reform atted images were obtained, reviewed, and stored. All CT scans at this medical facility are performe d using dose modulation techniques as appropriate to a performed exam including the following: Automa riddhi exposure control was utilized; adjustment of the MA and/or KV according to patient size; and use of iterative reconstruction technique. CTDIvol = 15.38 mGy DLP = 556.68 mGy-cm COMPARISON: CT CT LOWER EXTREMITY on DOS: 11/15/24 FINDINGS: Moderate subcutaneous edema and skin thickening in the left lower leg, may be seen with mian lulitis in the appropriate clinical setting. No peripherally enhancing fluid collection to suggest ab scess. Prominent varicosities are seen in the left lower leg. Osseous structures are intact no eviden ce of acute fracture. No erosive changes or cortical destruction are seen. IMPRESSION: 1. Moderate subcutaneous edema and skin thickening in the left lower leg are nonspecific, but may be seen with cellulitis in the appropriate clinical setting. 2. No evidence for abscess. 3. Additional findings as described above
[2024-11-17] MEDS ORDERED: ASPI81TA52 PO (12:41)
[2024-11-17] MEDS ORDERED: CLIN-97 PO (12:41)
[2024-11-17] MEDS ORDERED: PANT40TA54 PO (12:41)
[2024-11-17] MEDS ORDERED: CEFD300C3 PO (12:41)
[2024-11-17] MEDS ORDERED: LACT1CAP65 PO (12:51)
--- NOTE | 2024-11-17 13:50 | DISCHARGE SUMMARY ---
Discharge Summary Providers to CC ~ Discharge Summary Admission Diagnosis: YENNI, cellulitis, abscess Hospital Course DATE OF ADMISSION: 11/15/24 DATE OF DISCHARGE: 11/17/24 Discharge Diagnosis\Comment: Cellulitis, LLE Sepsis 2/2 cellulitis Prerenal YENNI 2/2 sepsis/vasomotor nephropathy Hyponatremia, mild Methamphetamine abuse Malnutrition, mild- POA Operations\Procedures: None Consultants: None Complications: None Condition on DC: Stable New Medications: Aspirin (Aspirin EC) 81 Mg Tablet.dr 1 TAB PO DAILY for 30 Days, #30 TAB Cefdinir (Cefdinir) 300 Mg Capsule 1 CAP PO Q12H for 10 Days, #20 CAP 0 Refills Clindamycin HCL* (Clindamycin HCL*) 300 Mg Capsule 1 CAP PO Q6H for 10 Days, #40 CAP Lactobacillus Acidophilus (Probiotic) 10 Billion Cell Capsule 1 CAP PO Q12H for 10 Days, #20 CAP 0 Refills Pantoprazole Sodium (Pantoprazole Sodium) 40 Mg Tablet.dr 40 MG PO DAILY for 30 Days, #30 TAB.SR Continued Medications: Amlodipine* (Norvasc*) 2.5 Mg Tablet 10 MG PO DAILY, TAB Bupropion XL (Bupropion Xl) 300 Mg Tab.er.24h 1 TAB PO QAM, TAB 0 Refills Discontinued Medications: Hydrochlorothiazide (Hydrochlorothiazide) 25 Mg Tablet 1 TAB PO DAILY, TAB 0 Refills Valsartan* (Diovan*) 80 Mg Tablet 1 TAB PO DAILY, TAB Discharge Summary: History of Present Illness Breonna Ceballos is a 53-year-old female with a past medical history of methamphetamine abuse who presented to the ED with chief complaints of acute onset left lower extremity pain and redness x 3 days. Patient reports itching of left lower extremity which led her to vigorously scratch her left leg and subsequently open sores on lateral left lower leg which had scabbed now. Patient denies prior [place]/CAD, CVA, cardiac arrhythmia, DVT/PE, or GIB. Patient denies chest pain, palpitations, shortness of breath, abdominal pain, n/v/d, fever, chills, dysuria. Patient is to be admitted for further workups and treatment. Hospital Course Diagnostic findings were notable for findings of sepsis including leukocytosis and tachycardia. Other findings were notable for abnormal renal function, mild hyponatremia, elevated procal. CT of left lower extremity was done without contrast initially due to renal insufficiency, which resulted positive for cellulitis. Pertinent negative findings were normal lactic acid, afebrile. Patient was treated with 3 L of bolus intravenous normal saline followed by continuous fluids, empirical antibiotics. With the start of treatment, leukocytosis resolved and acute kidney injury improved. On a subsequent day, CT with contrast was done which resulted positive for cellulitis without evidence of abscess. TTE showed LVEF of 75%, RVSP of 26 mmHg, without significant valvular disease. Patient did not experience further complications throughout the entire hospital stay and made a good recovery. Patient was seen and examined on the day of discharge. On day of discharge, vss and labs notable for resolving acute kidney injury and normalized white count. Preliminary blood culture remains negative until the day of discharge. All labs, diagnostic workups, discharge plan discussed with patient in details during visit before discharge. All questions and concerns answered to the best of my professional knowledge. Physical Exam General: A&Ox 3, NAD HEENT: Normocephalic, PERRLA Neck: Supple, trachea midline, no JVD Chest: Clear to auscultation bilaterally Cardiovascular: RRR, S1&S2 Abdomen: Soft and nontender Extremities: Improving erythema around lateral medial and anterior aspects of left lower leg Central Nervous System: CN II-XII intact, no focal deficits Musculoskeletal: No paraspinal muscle tenderness, no muscle spasm Skin: Scabs in left lateral lower extremity *Problems/Diagnosis: (1) Cellulitis Status: Acute Total Time Spent on D/C: > 30 Minutes Date of Service: Nov 17, 2024 Billing Provider: SILVIA SCHAFFER Common Visit Codes: 50074-HPP/OBS DISCH DAY >30min SILVIA SCHAFFER Nov 17, 2024 13:50
[2024-11-17] MEDS ORDERED: VANCOMYCIN/WATER FOR INJ (PEG) 1.5GM/300 ML IVPB IV SCH (17:00)
[2024-11-19] MEDS ORDERED: VANCOMYCIN LEVEL IV ONE (04:30)
== END 2024-11-17 13:35 | disposition home or self-care (01) | DRG 720 ==
LOC: ER 09:16 → ED HOLD 12:15 → ORTHO 4S 23:35
PROVIDERS: ADMIT Nurse Practitioner Family; ATTEND Nurse Practitioner Family
PROC: BQ2S1ZZ Computerized Tomography (CT Scan) of Left Lower Extremity using Low Osmolar Contrast (ICD-10-PCS; principal; 2024-11-17)
PROC: 05HA33Z Insertion of Infusion Device into Left Brachial Vein, Percutaneous Approach (ICD-10-PCS; 2024-11-17)
PROC: B54NZZA Ultrasonography of Left Upper Extremity Veins, Guidance (ICD-10-PCS; 2024-11-17)
DX: A41.9 Sepsis, unspecified organism (principal); N17.0 Acute kidney failure with tubular necrosis; E44.1 Mild protein-calorie malnutrition; F32.A Depression, unspecified; F41.9 Anxiety disorder, unspecified; G43.909 Migraine, unspecified, not intractable, without status migrainosus; L03.116 Cellulitis of left lower limb; E87.1 Hypo-osmolality and hyponatremia; F15.10 Other stimulant abuse, uncomplicated; I10 Essential (primary) hypertension; Z88.5 Allergy status to narcotic agent; Z79.899 Other long term (current) drug therapy; Z68.30 Body mass index [BMI] 30.0-30.9, adult
CPT/HCPCS: 36410; 36415; 73700; 73701; 76937; 80048; 80053; 80202; 80305; 81001; 82570; 83605; 83735; 83930; 83935; 84133; 84145; 84156; 84300; 84540; 85025; 87040; 87081; 87088; 93306; 93971; 97116; 97161; 99285; A6258; A6449; C1751; G0378; J1644; J2270; J2543; J3370; J7030; J7040; Q9967